=== PATIENT | female | born 1945 | race Caucasian/White ===

== ENCOUNTER 2020-08-07 00:34 | Outpatient (CLI) | payer OTHER, SELFPAY ==
[2020-08-07 18:51] LABS: SARS-CoV-2 RNA PCR Negative
== END 2020-08-07 00:35 | disposition home or self-care (01) ==
LOC: ANHCOVIDDT 00:35
PROVIDERS: PCP Internal Medicine; Visit Provider Internal Medicine Gastroenterology
DX: Z01.818 Encounter for other preprocedural examination (principal); Z20.828 Contact with and (suspected) exposure to other viral communicable diseases
CPT/HCPCS: 87635; C9803; U0003

== ENCOUNTER 2020-08-10 00:57 | Day surgery (SDC) | payer OTHER, SELFPAY ==
[2020-08-02 14:43] VITALS: BMI 30.4
[2020-08-10 08:26] VITALS: BP 162/69; PULSE 70; RESP 18; TEMP 36.9; O2SAT 98
[2020-08-10] MEDS: LACTATED RINGERS 1,000 ML 150 ML IV CONT (08:37)
--- NOTE | 2020-08-10 09:05 | WPDGICN ---
Assessment and Plan Assessment and plan (1) RUQ abdominal pain: Code(s): R10.11 - Right upper quadrant pain Status: Acute Assessment and Plan: Etiology of pain remains unclear. Because Tums helps and sometimes is worse after eating suggest an upper GI etiology. Plan is for EGD to evaluate more thoroughly. Antacids will be given for now further recommendations will be given after endoscopy. (2) Epigastric abdominal pain: Code(s): R10.13 - Epigastric pain Status: Acute (3) Diverticulosis: Code(s): K57.90 - Diverticulosis of intestine, part unspecified, without perforation or abscess without bleeding Status: Acute Assessment and Plan: Diverticulosis noted by endoscopy. Unlikely to cause pain. Her discomfort may be related to irritable bowel syndrome. Fiber supplement such as FiberCon 2 tabs p.o. daily is advised. GI Consult Note Consult date/time: 08/10/20 09:05 HPI: Yvonne Jerry is a 75 year old female Presents for evaluation of abdominal pain. Patient describes a burning right upper quadrant pain for several months also in the epigastric area occurs intermittently. Tums will help to some degree. She states sometimes is worse after eating. She received an antibiotic for urinary tract infection that seem to improve her pain. She also has a past history of diverticulosis by colonoscopy in November of 2017. She intermittently will have some left lower quadrant discomfort. Past medical history is significant for cholecystectomy. She currently takes antacids for her discomfort with unclear improvement. She has been advised to take fiber supplements as well. Review of Systems Review of Systems: All systems reviewed & are unremarkable except as noted in HPI and below [facility] Family History Family History (Updated 02/11/16 @ 15:22 by DOCTOR UNKNOWN) Mother Family history of dementia Other Family history of cardiovascular disease Hypertension Social History Social History Smoking packs per day: 1 Smoking cigarettes per day: 20.0 Years smoked: 20 Smoking pack-years: 20.00 Smoking status: Former smoker Tobacco type: cigarettes Alcohol intake: current Drinks per week: 6 Substance use: never Living arrangements: with family Spiritual care concerns: No Meds Home Medications and Allergies Home Medications Medication Instructions Recorded Confirmed Type Daily Probiotic 1 tab-cap PO DAILY 08/02/20 08/02/20 History amlodipine 10 mg PO DAILY 08/02/20 08/02/20 History aspirin [Adult Low Dose Aspirin] 81 mg PO DAILY 08/02/20 08/02/20 History calcium carbonate-vitamin D3 1 tablet PO DAILY 08/02/20 08/02/20 History [Calcium with Vitamin D] cyanocobalamin (vitamin B-12) 1,000 mcg PO DAILY 08/02/20 08/02/20 History [Vitamin B-12] omega-3 fatty acids-vitamin E 1 cap PO DAILY 08/02/20 08/02/20 History [Fish Oil] triamterene-hydrochlorothiazid 0.5 tablet PO DAILY 08/02/20 08/02/20 History valsartan 80 mg PO DAILY 08/02/20 08/02/20 History Allergies Allergy/AdvReac Type Severity Reaction Status Date / Time No Known Allergies Allergy Verified 08/10/20 08:24 Vital Signs Vital Signs - 24 hr 08/10/20 08:26 Temperature 98.4 F Pulse Rate 70 Respiratory Rate 18 Blood Pressure 162/69 H Pulse Oximetry 98 Exam Narrative: Exam Narrative: Physical exam reveals patient to be alert. Vital signs stable. HEENT exam unremarkable. Lungs are clear to auscultation and percussion. Heart is without murmur or extra sounds. Abdominal exam bowel sounds are present soft no localized tenderness. No masses are noted she reports pain in the epigastric and right upper quadrant area.
--- NOTE | 2020-08-10 09:28 | WPDANESEPPF ---
Anes - Initial Pre Proc Eval Procedure: Operation Date: 08/10/20 09:30 Proposed Procedures p Esophagogastroduodenoscopy - Kenny Saucedo MD Date/Time: 08/10/20 09:28 Surgeon: Kenny Saucedo MD Pre Op Diagnosis: epigasatric pain Patient Data Age: 75 Gender: F Height: 5 ft 7 in Weight: 88.7 kg Last Vital Signs Temp 98.4 F 08/10/20 08:26 Pulse 70 08/10/20 08:26 Resp 18 08/10/20 08:26 BP 162/69 H 08/10/20 08:26 Pulse Ox 98 08/10/20 08:26 Allergies Allergy/AdvReac Type Severity Reaction Status Date / Time No Known Allergies Allergy Verified 08/10/20 08:24 Home Medications Medication Instructions Recorded Confirmed Type Daily Probiotic 1 tab-cap PO DAILY 08/02/20 08/02/20 History amlodipine 10 mg PO DAILY 08/02/20 08/02/20 History aspirin [Adult Low Dose Aspirin] 81 mg PO DAILY 08/02/20 08/02/20 History calcium carbonate-vitamin D3 1 tablet PO DAILY 08/02/20 08/02/20 History [Calcium with Vitamin D] cyanocobalamin (vitamin B-12) 1,000 mcg PO DAILY 08/02/20 08/02/20 History [Vitamin B-12] omega-3 fatty acids-vitamin E 1 cap PO DAILY 08/02/20 08/02/20 History [Fish Oil] triamterene-hydrochlorothiazid 0.5 tablet PO DAILY 08/02/20 08/02/20 History valsartan 80 mg PO DAILY 08/02/20 08/02/20 History Patient hx anesthesia problems: none Family hx anesthesia problems: none PMFSH Past Medical History Medical History (Updated 08/10/20 @ 09:28 by Bean Hudson MD) GERD (gastroesophageal reflux disease) Hypertension Family History Family History (Updated 02/11/16 @ 15:22 by DOCTOR UNKNOWN) Mother Family history of dementia Other Family history of cardiovascular disease Hypertension Social History Social History Smoking packs per day: 1 Smoking cigarettes per day: 20.0 Years smoked: 20 Smoking pack-years: 20.00 Smoking status: Former smoker Tobacco type: cigarettes Alcohol intake: current Drinks per week: 6 Substance use: never Living arrangements: with family Spiritual care concerns: No Anes - Eval Final PreProcedure Day of Procedure 08/10/20 09:28 Patient weight: overweight Heart: regular rate and rhythm Lungs: clear to auscultation Airway: Mallampati scale class II Neurological: alert and oriented Last oral intake: >/= 8 hours ASA classification: III Emergent: no Anesthetic plan: proceed Anesthesia type and monitoring: general GIVS and standard monitoring Informed Consent: The patient's anesthetic plan and its attendant risks and benefits were discussed with the patient/family/POA. Questions were solicited and answers provided to the satisfaction of the patient/family/POA.
[2020-08-10 09:54] VITALS: BP 103/56; PULSE 61; RESP 14; O2SAT 100
[2020-08-10 10:04] VITALS: BP 125/47; PULSE 63; RESP 18; O2SAT 100
[2020-08-10 10:14] VITALS: BP 140/50; PULSE 58; RESP 16; O2SAT 99
== END 2020-08-10 10:28 | disposition home or self-care (01) ==
PROVIDERS: PCP Internal Medicine; Visit Provider Internal Medicine Gastroenterology
PROC: 0DJ08ZZ Inspection of Upper Intestinal Tract, Via Natural or Artificial Opening Endoscopic (ICD-10-PCS; CPT 43235; principal; 2020-08-10 09:30)
DX: R10.11 Right upper quadrant pain (principal); Q39.4 Esophageal web; K21.00 Gastro-esophageal reflux disease with esophagitis, without bleeding; R10.13 Epigastric pain; K57.90 Diverticulosis of intestine, part unspecified, without perforation or abscess without bleeding; Z87.891 Personal history of nicotine dependence; Z79.82 Long term (current) use of aspirin; K21.9 Gastro-esophageal reflux disease without esophagitis; I10 Essential (primary) hypertension
CPT/HCPCS: 43450; 43235; J2704; J7120

== ENCOUNTER 2023-10-19 09:37 | Emergency (ER) | payer OTHER, SELFPAY ==
--- NOTE | 2023-10-19 09:40 | ED.URI ---
HPI - URI/Sore Throat General Chief Complaint: Upper Respiratory Infection Stated Complaint: Cough, Chest Pain, Sore Throat Time Seen by Provider: 10/19/23 09:39 Source: patient Mode of arrival: ambulatory Limitations: no limitations History of Present Illness HPI Narrative: Louise is a 78-year-old female patient presenting to the clinic today with complaints of sore throat, cough, and chest tightness with inspiration and coughing. She reports symptoms have been going on for 5 weeks. MD elicited complaint: sore throat and nasal congestion Related Data Home Medications Medication Instructions Recorded Confirmed amlodipine 10 mg tablet 10 mg PO DAILY 10/19/23 10/19/23 omeprazole 20 mg capsule,delayed 20 mg PO DAILY 10/19/23 10/19/23 release triamterene 75 1 tablet PO DAILY 10/19/23 10/19/23 mg-hydrochlorothiazide 50 mg tablet valacyclovir 500 mg tablet 500 mg PO PRN PRN Cold Sores 10/19/23 10/19/23 valsartan 160 mg tablet 160 mg PO DAILY 10/19/23 10/19/23 Allergies Allergy/AdvReac Type Severity Reaction Status Date / Time No Known Allergies Allergy Verified 10/19/23 09:46 Review of Systems Review of Systems: Pertinent positives per HPI. Patient denies any fever, chills, rash, headache, visual changes, dizziness, shortness of breath, palpitations, nausea, vomiting, diarrhea, constipation, abdominal pain, or any urinary issues. PMFSH Comments At the time of my signature, I reviewed and agree with the nursing past medical, surgical, social, and family history. There is no relevant family history pertinent to the patient complaint. Exam Narrative: General: Well-developed, well nourished, in no apparent distress Head: Normocephalic, atraumatic Eyes: Pupils equally round and reactive to light bilaterally, EOM intact, sclera and conjunctive clear, no discharge, lids normal Ears: TMs intact and clear, ear canals clear, no drainage, grossly hearing normal. Nose: Nares patent, clear nasal discharge, mild inflammation, no sinus tenderness. Mouth: Oral pharynx without lesions or masses, good dentition, MMM. Neck: Supple, trachea midline, no enlargement of anterior or posterior cervical nodes, no thyroid masses or goiter palpable. Cardio: Regular rate and rhythm, s1 and s2 normal, no murmur appreciated. Resp: Clear to auscultation bilaterally, no rhonchi, rales, wheezing or rubs Course Course Emergency Course: Portions of this record may have been created with voice recognition software. Level of Care: Express Care Visit Vital Signs Vital signs: Vital signs reviewed MDM - URI/Sore Throat MDM Narrative Medical decision making narrative: At the time of visit patient is resting comfortably on the exam table. Patient appears to be nontoxic. Plan: I suspect patient has URI. Prescription for Tessalon Perles was sent to the pharmacy. Supportive measures were discussed with the patient and they voiced understanding discharge instructions and agrees to treatment plan. Return precautions reviewed Differential Diagnosis Differential diagnosis: Likely upper respiratory infection, otitis media, sinusitis, viral infection, bronchitis, influenza, pharyngitis and other (COVID) Discharge Plan Discharge Clinical Impression: Upper respiratory infection Patient Disposition: Home, Self-Care Condition: Stable Instructions: Antibiotic Form, Upper Respiratory Infection (ED) Additional Instructions: Take prescription medications only as prescribed-Brandon Martinez May take Coricidin HBP for cold/flu symptoms Increase fluids and stay well hydrated Tylenol/motrin for pain/fever Flonase and OTC antihistamines as directed Vicks vapor rub to open sinuses Sinus rinses for congestion Cepacol spray, cough drops, throat lozenges, warm tea with honey/lemon, gargle salt water to soothe throat BRAT diet for diarrhea Clear liquids x 24 hours then advance as tolerated for nausea/vomiting Go to
[2023-10-19 09:50] VITALS: BP 131/67; PULSE 84; RESP 18; TEMP 36.6; O2SAT 98
== END 2023-10-19 10:03 | disposition home or self-care (01) ==
LOC: EXPTROY 09:44
PROVIDERS: Emergency Provider Nurse Practitioner Family; PCP Family Medicine
DX: J06.9 Acute upper respiratory infection, unspecified (principal); I10 Essential (primary) hypertension; K21.9 Gastro-esophageal reflux disease without esophagitis; M19.90 Unspecified osteoarthritis, unspecified site; Z86.16 Personal history of COVID-19
CPT/HCPCS: 99203; G0463